=== PATIENT | male | born 1990 | race Two or more races ===

== ENCOUNTER 2019-06-25 03:29 | Emergency (ER) | payer SELFPAY ==
[~2019-06-25] VITALS: Ht 185.4 cm; Wt 104.3 kg
[2019-06-25 03:30] VITALS: Ht 185.4 cm; Wt 104.3 kg
[2019-06-25 04:06] VITALS: BP 127/74
== END 2019-06-25 04:06 | disposition other institution (70) ==
LOC: ED 03:29 → EDBD 03:29 → ED 04:06
DX: F10.129 Alcohol abuse with intoxication, unspecified (principal); E11.9 Type 2 diabetes mellitus without complications; M54.9 Dorsalgia, unspecified; Z13.89 Encounter for screening for other disorder; Z98.890 Other specified postprocedural states; Y90.9 Presence of alcohol in blood, level not specified

== ENCOUNTER 2019-06-25 03:29 | Emergency (ER) | payer OTHER | END 2019-06-25 04:06 | disposition other institution (70) | LOC: ED 03:29 | DX: Z02.89 Encounter for other administrative examinations (principal) ==